=== PATIENT | female | born 1990 | race African-American/Black ===

== ENCOUNTER 2023-03-05 11:26 | Day surgery (SDC) | payer OTHER ==
[~2023-03-05] VITALS: Ht 162.6 cm; Wt 59.6 kg
[2023-03-05] VITALS (10 sets, daily range): BP systolic 90–100; BP diastolic 56–63; PULSE 67–89; TEMP 98.8
[2023-03-05] MEDS ORDERED: PRIL40 PO (11:58)
[2023-03-05] MEDS ORDERED: ASPIRIN E.C. 8181 MG PO (11:58)
[2023-03-05] MEDS ORDERED: CRESTOR 10MG10 MG PO (11:58)
[2023-03-05] MEDS ORDERED: PLAVIX 75MG TAB75 MG PO (11:58)
[2023-03-05] MEDS ORDERED: FLAGYL500 MG PO (11:59)
[2023-03-05 12:19] LABS: CALCIUM 8.4 mg/dL (8.4-10.2); CREATININE, serum 0.76 mg/dL (0.57-1.11); HEMATOCRIT 37.3 % (37.0-47.0); HEMOGLOBIN 13.4 g/dl (12.5-16.0); MEAN CELL VOLUME 89 fl (80.0-100.0); MEAN CORPUSCULAR HEMOGLOBIN 32 pg (27-31); MEAN CORPUSCULAR HGB CONC 36 g/dl (33.0-37.0); MEAN PLATELET VOLUME 9.3 fl (7.4-10.4); PLATELET COUNT 216 K/mm3 (130-400); POTASSIUM 3.8 mmol/L (3.5-4.5); RED BLOOD COUNT 4.19 M/mm3 (4.10-5.30); REDCELL DISTRIBUTION WIDTH-CV 11.5 % (11.5-14.5)
[2023-03-05 12:27] LABS: INR 1.1 (0.8-3.0); PROTHROMBIN TIME 12.3 SECONDS (9.7-12.8)
[2023-03-05 12:30] LABS: PARTIAL THROMBOPLASTIN TIME 30.7 SECONDS (26.0-37.0)
--- NOTE | 2023-03-05 13:22 | NUR ---
Please see merge documentation for record of interventions, vitals and medications administered during procedure.
--- NOTE | 2023-03-05 14:30 | NUR ---
Pt has c/o mild numbness into from rt wrist to thumb. 1 ml of air removed from TR band with slight improvement. Arm is resting elevated on a pillow. Pt free of other concerns.
--- NOTE | 2023-03-05 16:25 | NUR ---
DC instructions reviewed with pt, she expresses understanding. Air was removed from TR band in 2 ml increments with no bleeding or complication. Rt radial puncture site covered with folded 2x2 and bandaid. Pt is stable on feet. She has tolerated PO without issue. IV DC'd, site wrapped with coban. She is assisted out to friend's car by wheelchair.
== END 2023-03-05 16:25 | disposition home or self-care (01) ==
LOC: COL.CAR 11:26
PROVIDERS: Internal Medicine Interventional Cardiology
DX: R07.9 Chest pain, unspecified (principal); R94.39 Abnormal result of other cardiovascular function study; R94.31 Abnormal electrocardiogram [ECG] [EKG]
CPT/HCPCS: J1644; J2060; J2250; J3010; Q9967

== ENCOUNTER → 2023-06-30 | Outpatient (CLI) | payer OTHER ==
[~2023-06-30] MED LIST: ASPIRIN E.C. 8181 MG PO; Albuterol 0.083% Neb Soln 2.5 MG/3 ML UD IH ONE; CRESTOR 10MG10 MG PO; FLAGYL500 MG PO; Methacholine Vial A (Clear Label Base-Cntrl) IH ONE; Methacholine Vial B (Red Label) 0.0625 MG/ML 3 ML VIAL.NEB IH ONE; Methacholine Vial C (Orange Label) 0.25 MG/ML 3 ML VIAL.NEB IH ONE; Methacholine Vial D (Yellow Label) 1 MG/ML 3 ML VIAL.NEB IH ONE; Methacholine Vial E (Green Label) 4 MG/ML 3 ML VIAL.NEB IH ONE; Methacholine Vial F (Blue Label) 16 MG/ML 3 ML VIAL.NEB IH ONE; PLAVIX 75MG TAB75 MG PO; PRIL40 PO
== END ==
LOC: COL.CARD 09:50
DX: R06.02 Shortness of breath (principal)
CPT/HCPCS: J7674